=== PATIENT | male | born 1985 | race Caucasian/White ===

== ENCOUNTER 2021-01-03 08:56 | Emergency (ER) | payer OTHER ==
[2021-01-03 10:01] LABS: BASOPHIL 0.3 % (0-2); EOSINOPHIL 0.9 % (0-5); HGB 16.2 g/dl (13.2-18.0); LYMPHOCYTE 19.9 % (15-48); MCH 29.8 pg (25.0-31.0); MCHC 33.8 g/dL (32.0-36.0); MCV 88.4 fL (78.0-100.0); MPV 10.5 fL (6.0-9.5); NEUTROPHIL 70.3 % (41-80); NRBC 0; PLT 250 K/uL (150-400); RBC 5.43 M/uL (4.70-6.00); RDW 12.1 % (11.5-14.0); WBC 9.5 K/uL (4.0-10.5)
[2021-01-03 10:16] LABS: ALBUMIN 4.2 g/dL (3.4-5.0); BILIRUBIN - TOTAL 0.6 mg/dL (0.2-1.0); BUN/CREAT RATIO (CALC) 12.3 RATIO; CREATININE 0.81 mg/dL (0.67-1.17); GLOBULIN (CALCULATION) 4.1 g/dL; POTASSIUM 4.5 mmol/L (3.5-5.1); TOTAL PROTEIN 8.3 g/dL (6.4-8.2)
[2021-01-03 10:57] LABS: PRO-BNP 16 pg/mL (<125)
[2021-01-03] MEDS ORDERED: PEPCID AC20 MG PO (13:43)
[2021-01-03] MEDS ORDERED: PREDNISONE 20MG20 MG PO (13:43)
== END 2021-01-03 14:16 | disposition home or self-care (01) ==
LOC: FER 08:56
PROVIDERS: Internal Medicine
DX: J45.901 Unspecified asthma with (acute) exacerbation (principal); R42 Dizziness and giddiness; Z79.899 Other long term (current) drug therapy
CPT/HCPCS: 36415; 71045; 80053; 83690; 83880; 84484; 85025; 85379; 93005; 94640; J2930